=== PATIENT | male | born 1975 | race American Indian/Alaskan Native ===

== ENCOUNTER 2021-12-01 11:58 | Emergency (ER) | payer SELFPAY ==
--- NOTE | 2021-12-01 13:01 | XRay Report ---
Right hip-2 views INDICATION: injury. COMPARISON: None available. IMPRESSION: No acute osseous abnormality. Tiny os acetabulum noted. Normal alignment. No significant DJD. Soft tissues are unremarkable. Signer Name: Jourdan Dacosta MD Signed: 12/01/2021 12:56 PM Workstation Name: [email or web address]
[2021-12-01] MEDS ORDERED: predniSONE 20 MG TAB PO ONE (16:55)
[2021-12-01] MEDS ORDERED: KETOROLAC 10 MG TAB PO ONE (16:55)
[2021-12-01] MEDS ORDERED: CYCLOBENZAPRINE 10 MG TAB PO ONE (16:55)
[2021-12-01] MEDS ORDERED: oxyCODONE /ACETAMINOPHEN 5-325MG TAB PO ONE (16:55)
--- NOTE | 2021-12-01 17:46 | Emergency Department Report ---
ED Extremity Problem HPI - General Chief complaint: Extremity Injury, Lower Stated complaint: SEVERE PAIN IN HIP Time Seen by Provider: 12/01/21 16:54 Source: patient Mode of arrival: Ambulatory Limitations: No Limitations - History of Present Illness Initial comments: 46 yo black male with no pmh presents to ED for evaluation of right hip pain. 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 He states that pain has been worse the past several days. He denies any injury or trauma. MD Complaint: extremity pain, joint paint -: Gradual, month(s) (3) Location: right, lower extremity (hip) History of Same: Yes -: No myalgia, No arthralgia, No fever, No associated dyspnea, No associated ch est pain Radiation: none Severity scale (0 -10): 5 Quality: aching Consistency: constant Worsens with: weight bearing Associated Symptoms: denies: chest pain, shortness of breath, fever, myalgias, arthralgias, rash - Related Data Previous Rx's Medication Instructions Recorded Last Taken Type Acetaminophen/Codeine [Tylenol 1 tab PO Q6H PRN #12 tab 12/01/21 Unknown Rx /Codeine # 3 tab] Cyclobenzaprine [Flexeril] 10 mg PO TID PRN #30 tab 12/01/21 Unknown Rx Ketorolac [Toradol] 10 mg PO Q6H PRN #12 tab 12/01/21 Unknown Rx Lidocaine [Lidoderm] 1 each TP DAILY PRN #10 patch 12/01/21 Unknown Rx predniSONE [Deltasone] 50 mg PO QDAY 5 Days #5 tab 12/01/21 Unknown Rx Allergies Allergy/AdvReac Type Severity Reaction Status Date / Time No Known Allergies Allergy Unverified 10/18/15 15:38 ED Review of Systems ROS: Stated complaint: SEVERE PAIN IN HIP Other details as noted in HPI Comment: All other systems reviewed and negative Constitutional: denies: chills, fever Respiratory: denies: shortness of breath Cardiovascular: denies: chest pain, palpitations Gastrointestinal: denies: abdominal pain, nausea, vomiting Musculoskeletal: denies: back pain Neurological: denies: headache, weakness ED Past Medical Hx - Past Medical History Previous Medical History?: No - Surgical History Past Surgical History?: No - Social History Smoking Status: Current Every Day Smoker Substance Use Type: Alcohol - Medications Home Medications: Home Medications Medication Instructions Recorded Confirmed Last Taken Type Acetaminophen/Codeine [Tylenol 1 tab PO Q6H PRN #12 tab 12/01/21 Unknown Rx /Codeine # 3 tab] Cyclobenzaprine [Flexeril] 10 mg PO TID PRN #30 tab 12/01/21 Unknown Rx Ketorolac [Toradol] 10 mg PO Q6H PRN #12 tab 12/01/21 Unknown Rx Lidocaine [Lidoderm] 1 each TP DAILY PRN #10 patch 12/01/21 Unknown Rx predniSONE [Deltasone] 50 mg PO QDAY 5 Days #5 tab 12/01/21 Unknown Rx ED Physical Exam - General Limitations: No Limitations General appearance: alert, in no apparent distress - Head Head exam: Present: atraumatic, normocephalic - Eye Eye exam: Present: normal appearance. Absent: conjunctival injection - Neck Neck exam: Present: normal inspection, full ROM - Respiratory Respiratory exam: Absent: respiratory distress, chest wall tenderness - Cardiovascular Cardiovascular Exam: Present: regular rate - GI/Abdominal GI/Abdominal exam: Absent: distended, tenderness - Expanded Lower Extremity Exam Right Hip exam: Present: tenderness. Absent: full ROM, swelling, abrasion, ecchymosis, dislocation, erythema Upper Leg exam: Present: normal inspection Knee exam: Present: normal inspection Lower Leg exam: Present: normal inspection Ankle exam: Present: normal inspection Neuro vascular tendon exam: Present: no vascular compromise. Absent: pulse deficit, abnormal cap refill, sensory deficit, extremity cold to touch, pallor Gait: Positive: observed and limited by pain - Back Exam Back exam: Present: normal inspection. Absent: vertebral tenderness - Neurological Exam Neurological exam: Present: alert, oriented X3, CN II-XII intact, normal gait - Psychiatric Psychiatric exam: Present: normal affect, normal mood - Skin Skin exam: Present: warm, dry, intact, normal color ED Course Vital Signs 12/01/21 12/01/21 12/01/21 12:20 17:19 17:40 Temperature 98.6 F 98.2 F Pulse Rate 92 H 80 Respiratory 18 16 16 Rate Blood Pressure 162/92 151/86 [Left] O2 Sat by Pulse 99 98 Oximetry ED Medical Decision Making - Radiology Data Radiology results: report reviewed, image reviewed Right hip x-ray: IMPRESSION: No acute osseous abnormality. Tiny os acetabulum noted. Normal alignment. No significant DJD. Soft tissues are unremarkable. - Medical Decision Making 46 yo black male with no pmh presents to ED for evaluation of right hip pain. 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 He states that pain has been worse the past several days. He denies any injury or trauma. Right hip xray noted to have tiny os acetabulum but no acute fracture noted. Pain improved after medication. He will be discharge home with prednisone, toradol, flexeril and lidoderm patches to use as directed and advised to follow up with orthopedics for further evaluation and management and return to ED as needed. He verbalized understanding of and agreement with plan of care. Critical care attestation.: If time is entered above; I have spent that time in minutes in the direct care of this critically ill patient, excluding procedure time. ED Disposition Clinical Impression: Right hip pain Disposition: 01 HOME / SELF CARE / HOMELESS Is pt being admited?: No Does the pt Need Aspirin: No Condition: Stable Instructions: Hip Pain, Joint Pain, [id number] Additional Instructions: Take medications as prescribed. Follow-up with orthopedic surgeon for further evaluation and management. Return to the emergency department as needed. Prescriptions: predniSONE [Deltasone] 50 mg PO QDAY 5 Days #5 tab Cyclobenzaprine [Flexeril] 10 mg PO TID PRN #30 tab PRN Reason: Muscle Spasm Lidocaine [Lidoderm] 1 each TP DAILY PRN #10 patch PRN Reason: Pain, Moderate (4-6) Ketorolac [Toradol] 10 mg PO Q6H PRN #12 tab PRN Reason: Pain Acetaminophen/Codeine [Tylenol /Codeine # 3 tab] 1 tab PO Q6H PRN #12 tab PRN Reason: Pain , Severe (7-10) Referrals: ADILENE SIMS MD [Staff Physician] - 3-5 Days JACQUIE RUEDA MD [Staff Physician] - 3-5 Days Forms: Work/School Release Form(ED) Time of Disposition: 17:47
[2021-12-01 17:59] VITALS: BP 151/86
== END 2021-12-01 19:07 | disposition home or self-care (01) ==
LOC: ED 11:58
DX: M25.551 Pain in right hip (principal); F17.200 Nicotine dependence, unspecified, uncomplicated
CPT/HCPCS: 99283